=== PATIENT | male | born 1990 | race Caucasian/White ===

== ENCOUNTER 2022-12-29 14:00 | Outpatient (CLI) | payer OTHER | END 2022-12-29 14:09 | disposition home or self-care (01) | LOC: MRI 14:00 | DX: M25.569 Pain in unspecified knee (principal) | CPT/HCPCS: 73718 ==

== ENCOUNTER 2023-01-08 10:06 | Outpatient (CLI) | payer OTHER | END 2023-01-08 10:12 | disposition home or self-care (01) | LOC: MRI 10:06 | PROVIDERS: ATTEND Physical Medicine & Rehabilitation | DX: S43.421D Sprain of right rotator cuff capsule, subsequent encounter (principal); S43.431D Superior glenoid labrum lesion of right shoulder, subsequent encounter | CPT/HCPCS: 73221 ==

== ENCOUNTER 2023-04-27 07:35 | Outpatient (CLI) | payer OTHER | END 2023-04-27 07:37 | disposition home or self-care (01) | LOC: RAD 07:35 | PROVIDERS: ATTEND Physical Medicine & Rehabilitation | DX: M54.2 Cervicalgia (principal); M54.12 Radiculopathy, cervical region ==